=== PATIENT | male | born 1975 ===

== ENCOUNTER 2017-07-27 08:57 | Outpatient (CLI) | payer OTHER ==
[~2017-07-27] VITALS: Ht 177.8 cm; Wt 77.1 kg
== END 2017-07-27 09:15 | disposition home or self-care (01) ==
LOC: OFIC 805 08:57
DX: J30.89 Other allergic rhinitis (principal); H60.8X1 Other otitis externa, right ear

== ENCOUNTER 2017-09-07 09:08 | Outpatient (CLI) | payer OTHER ==
[~2017-09-07] VITALS: Ht 152.4 cm; Wt 77.1 kg
== END 2017-09-07 17:22 | disposition home or self-care (01) ==
LOC: OFIC 805 09:08
DX: J30.89 Other allergic rhinitis (principal); H60.8X1 Other otitis externa, right ear; H69.81 Other specified disorders of Eustachian tube, right ear

== ENCOUNTER 2018-01-24 12:01 | Emergency (ER) | payer OTHER ==
[~2018-01-24] VITALS: Ht 175.3 cm; Wt 72.6 kg
[2018-01-24] MEDS ORDERED: KETO10TA2 PO (16:07)
[2018-01-24] MEDS ORDERED: NORFLEX100MG PO (16:07)
== END 2018-01-24 16:09 | disposition home or self-care (01) ==
LOC: ER 12:01
DX: R07.89 Other chest pain (principal); F06.4 Anxiety disorder due to known physiological condition

== ENCOUNTER 2018-07-06 10:03 | Outpatient (CLI) | payer OTHER ==
[~2018-07-06 10:03] MED LIST: KETO10TA2 PO; NORFLEX100MG PO
[2018-07-06] MEDS ORDERED: FLONASE16 GM NASAL (12:17)
== END 2018-07-06 12:19 | disposition home or self-care (01) ==
LOC: OFIC 805 10:03
DX: H93.90 Unspecified disorder of ear, unspecified ear (principal); H69.90 Unspecified Eustachian tube disorder, unspecified ear; J30.89 Other allergic rhinitis

== ENCOUNTER 2019-03-23 09:36 | Outpatient (CLI) | payer OTHER ==
[~2019-03-23] VITALS: Ht 152.4 cm; Wt 72.6 kg
[~2019-03-23 09:36] MED LIST changes: +FLONASE16 GM NASAL
== END 2019-03-23 11:33 | disposition home or self-care (01) ==
LOC: OFIC 805 09:36
DX: H93.8X1 Other specified disorders of right ear (principal); H68.101 Unspecified obstruction of Eustachian tube, right ear